=== PATIENT | male | born 1960 | race Caucasian/White ===

== ENCOUNTER 2021-01-14 15:15 | Emergency (ER) | payer OTHER ==
[~2021-01-14] VITALS: Ht 177.8 cm; Wt 68.2 kg
[2021-01-14 15:23] VITALS: BP 114/74
[2021-01-14] MEDS ORDERED: HYDR-3965 PO (18:16)
[2021-01-14] MEDS ORDERED: CYCL-1 PO (18:16)
[2021-01-14] MEDS ORDERED: NAPR-56 PO (18:16)
[2021-01-14] MEDS ORDERED: cyclobenzaprine 10mg tablet PO ONE (18:20)
[2021-01-14] MEDS ORDERED: naproxen 500mg tablet PO ONE (18:20)
[2021-01-14 19:01] LABS: URINE AMPHETAMINE SCREEN NEGATIVE (Neg); URINE BARBITUATE SCREEN NEGATIVE (Neg); URINE BENZODIAZEPINES SCREEN NEGATIVE (Neg); URINE CANNABINOID SCREEN NEGATIVE (Neg); URINE COCAINE SCREEN NEGATIVE (Neg); URINE METHADONE SCREEN NEGATIVE (Neg); URINE OPIATE SCREEN NEGATIVE (Neg); URINE PHENCYCLIDINE SCREEN NEGATIVE (Neg)
== END 2021-01-14 19:24 | disposition home or self-care (01) ==
LOC: ER 15:16
DX: M54.6 Pain in thoracic spine (principal); M62.838 Other muscle spasm; R91.8 Other nonspecific abnormal finding of lung field; F17.200 Nicotine dependence, unspecified, uncomplicated; Z79.899 Other long term (current) drug therapy
CPT/HCPCS: 71250; 72128; 80305; 99285